=== PATIENT | male | born 1980 | race Asian ===

== ENCOUNTER 2019-12-08 18:37 | Emergency (ER) | payer OTHER ==
[~2019-12-08] VITALS: Ht 167.6 cm; Wt 83.9 kg
[2019-12-08 19:10] VITALS: BP 136/87
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
[2019-12-08] MEDS ORDERED: Methocarbamol 750mg tab ORAL ONE (19:30)
--- NOTE | 2019-12-08 19:32 | NUR ---
ED Nurse Note: Xray at bedside.
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
[2019-12-08] MEDS ORDERED: IBUPROFEN600 MG ORAL (19:49)
[2019-12-08] MEDS ORDERED: ROBAXIN-500MG ORAL (19:49)
[2019-12-08] MEDS ORDERED: LIDODERM700 M1 TOPIC (19:49)
[2019-12-08 20:10] VITALS: BP 136/87
--- NOTE | 2019-12-08 20:10 | NUR ---
ED Nurse Note: Pt cleared by ERMD for discharge. DC instructions/prescription was given and explained to pt and verbalized understanding of teachings. All medical deviecs such as ID band removed. Pt is AAO x4, ambulatory and left with all personal belongings.
--- NOTE | 2019-12-08 20:24 | Diagnostic Imaging Report ---
EXAM: XR Left Forearm, 2 Views CLINICAL HISTORY: FB TECHNIQUE: Frontal and lateral views of the left forearm. COMPARISON: No relevant prior studies available. FINDINGS: No acute osseous or soft tissue abnormality.
--- NOTE | 2019-12-08 20:25 | Diagnostic Imaging Report ---
EXAM: XR Right Tibia and Fibula, 2 Views CLINICAL HISTORY: FB TECHNIQUE: Frontal and lateral views of the right tibia and fibula. COMPARISON: No relevant prior studies available. FINDINGS: Bones/joints: Unremarkable. No acute fracture. No dislocation. Soft tissues: Unremarkable. No radiopaque foreign body. IMPRESSION: Normal right tibia and fibula x-rays.
--- NOTE | 2019-12-08 20:25 | Diagnostic Imaging Report ---
EXAM: XR Left Tibia and Fibula, 2 Views CLINICAL HISTORY: FB TECHNIQUE: Frontal and lateral views of the left tibia and fibula. COMPARISON: No relevant prior studies available. FINDINGS: Bones/joints: Unremarkable. No acute fracture. No dislocation. Soft tissues: Unremarkable. No radiopaque foreign body. IMPRESSION: Normal left tibia and fibula x-rays.
== END 2019-12-08 20:10 | disposition home or self-care (01) ==
LOC: EMR 19:05
DX: S16.1XXA Strain of muscle, fascia and tendon at neck level, initial encounter (principal); S50.812A Abrasion of left forearm, initial encounter; S80.812A Abrasion, left lower leg, initial encounter; S80.811A Abrasion, right lower leg, initial encounter; V43.52XA Car driver injured in collision with other type car in traffic accident, initial encounter; Y92.411 Interstate highway as the place of occurrence of the external cause
CPT/HCPCS: 99284